=== PATIENT | male | born 1955 | race Caucasian/White ===

== ENCOUNTER 2017-05-03 22:30 | Emergency (ER) | payer MEDICAID ==
[~2017-05-03] VITALS: Ht 177.8 cm; Wt 102.0 kg
[~2017-05-03 22:30] MED LIST: ALPR0.5T96 PO; ALPR1TAB2 PO; AMLO2.5T45 PO; BENA20TA3 PO
[2017-05-03] MEDS ORDERED: SODIUM CHLORIDE 0.9% 1,000 ML IV ONE (23:40)
[2017-05-03] MEDS ORDERED: MORPHINE SULFATE 4 MG/ML CPJ (NOT FOR IM USE) IV ONE (23:45)
[2017-05-03] MEDS ORDERED: ONDANSETRON HCL 4MG/2ML VIAL IV ONE (23:45)
[2017-05-04 00:20] LABS: BASOPHILS % 0.5 % (0.0-2.0); HEMATOCRIT. 38.5 % (42.0-52.0); HEMOGLOBIN. 13.3 g/dL (14.0-18.0); LYMPHOCYTES % 17.2 % (20.0-50.0); MEAN CORPUSCULAR HEMOGLOBIN 33.3 pg (28.0-32.0); MEAN CORPUSCULAR VOLUME 96.4 fL (80.0-94.0); MEAN PLATELET VOLUME 9.3 fl (7.4-10.4); NEUTROPHILS % 73.3 % (40.0-76.0); PLATELET 165 x1000/uL (130-400); RED CELL DISTRIBUTION WIDTH 12.9 % (11.6-14.6)
[2017-05-04 00:32] LABS: CHLORIDE 108 mEq/L (98-107)
[2017-05-04 00:42] LABS: CARBON DIOXIDE 23 mEq/L (21-32)
[2017-05-04 04:13] VITALS: BP 138/88
[2017-05-04] MEDS ORDERED: IOHEXOL-300 100 ML BOTTLE ONE (14:04)
[2017-05-04] MEDS ORDERED: SODIUM CHLORIDE 0.9% 10ML VIAL ONE (14:04)
== END 2017-05-04 04:24 | disposition home or self-care (01) ==
LOC: ER 22:40
DX: S20.219A Contusion of unspecified front wall of thorax, initial encounter (principal); S09.8XXA Other specified injuries of head, initial encounter; I10 Essential (primary) hypertension; F41.9 Anxiety disorder, unspecified; E78.00 Pure hypercholesterolemia, unspecified; H05.331 Deformity of right orbit due to trauma or surgery; W13.2XXA Fall from, out of or through roof, initial encounter; Y93.89 Activity, other specified; Y92.89 Other specified places as the place of occurrence of the external cause; Y99.8 Other external cause status
CPT/HCPCS: 36415; 70450; 71010; 71260; 72125; 74177; 80053; 85025; 86850; 86900; 86901; 96361; 96374; 96375; 99285; A4216; J2270; J2405; J7030; Q9967; Z7610

== ENCOUNTER 2018-02-13 21:37 | Emergency (ER) | payer MEDICAID ==
[~2018-02-13] VITALS: Ht 180.3 cm; Wt 102.0 kg
[~2018-02-13 21:37] MED LIST changes: +ALPR0.5T PO; -ALPR0.5T96 PO
[2018-02-14] MEDS ORDERED: IBUPROFEN 600MG TABLET PO STA (02:07)
[2018-02-14 02:25] LABS: BASOPHILS % 0.8 % (0.0-2.0); EOSINOPHILS % 2.2 % (0.0-5.0); HEMATOCRIT. 41.3 % (42.0-52.0); HEMOGLOBIN. 14.1 g/dL (14.0-18.0); MEAN CORPUSCULAR HEMOGLOBIN 33.5 pg (28.0-32.0); MEAN CORPUSCULAR VOLUME 97.6 fL (80.0-94.0); MONOCYTES % 8.9 % (2.0-8.0); NEUTROPHILS % 63.1 % (40.0-76.0); PLATELET 212 x1000/uL (130-400); RED BLOOD CELL COUNT 4.23 mill/uL (4.7-6.1); RED CELL DISTRIBUTION WIDTH 12.3 % (11.6-14.6)
[2018-02-14 02:30] LABS: CHLORIDE 107 mEq/L (98-107)
[2018-02-14] MEDS ORDERED: VANCOMYCIN 1 G PREMIX 200 ML IV ONE (04:00)
[2018-02-14 06:19] VITALS: BP 104/80
== END 2018-02-14 06:21 | disposition home or self-care (01) ==
LOC: ER 22:36
DX: L03.031 Cellulitis of right toe (principal); I10 Essential (primary) hypertension; F41.9 Anxiety disorder, unspecified
CPT/HCPCS: 36415; 73630; 80053; 85025; 96365; 96366; 99285; J3370; Z7610

== ENCOUNTER 2019-01-01 23:19 | Emergency (ER) | payer MEDICAID ==
[~2019-01-01] VITALS: Ht 180.3 cm; Wt 100.0 kg
[~2019-01-01 23:19] MED LIST changes: +BENA20TA10 PO; -BENA20TA3 PO
[2019-01-02 01:14] LABS: CHLORIDE 108 mEq/L (98-107)
[2019-01-02 01:15] LABS: BASOPHILS % 0.5 % (0.0-2.0); EOSINOPHILS % 1.9 % (0.0-5.0); HEMATOCRIT. 41.8 % (42.0-52.0); HEMOGLOBIN. 14.4 g/dL (14.0-18.0); LYMPHOCYTES % 24.6 % (20.0-50.0); MEAN CORPUSCULAR HEMOGLOBIN 33.6 pg (28.0-32.0); MEAN CORPUSCULAR VOLUME 97.5 fL (80.0-94.0); MEAN PLATELET VOLUME 10.3 fl (7.4-10.4); MONOCYTES % 8.5 % (2.0-8.0); NEUTROPHILS % 64.5 % (40.0-76.0); PLATELET 168 x1000/uL (130-400); RED BLOOD CELL COUNT 4.28 mill/uL (4.7-6.1); RED CELL DISTRIBUTION WIDTH 12.6 % (11.6-14.6)
[2019-01-02] MEDS ORDERED: NITROGLYCERIN 0.4MG TABLET SL SL PRN (01:15)
[2019-01-02] MEDS ORDERED: ASPIRIN 81MG TABLET PO ONE (01:15)
[2019-01-02 05:27] VITALS: BP 129/78
== END 2019-01-02 05:28 | disposition home or self-care (01) ==
LOC: ER 23:19
DX: R07.89 Other chest pain (principal); F41.9 Anxiety disorder, unspecified; I10 Essential (primary) hypertension; Z79.899 Other long term (current) drug therapy
CPT/HCPCS: 36415; 71045; 80053; 83880; 84484; 85025; 93005; 99284; Z7610

== ENCOUNTER 2019-04-23 12:45 | Inpatient (IN) | payer MEDICAID, OTHER ==
[~2019-04-23] VITALS: Ht 177.8 cm; Wt 103.1 kg
[2019-04-23 14:31] LABS: CHLORIDE 106 mEq/L (98-107)
[2019-04-23 14:36] LABS: BASOPHILS % 0.5 % (0.0-2.0); EOSINOPHILS % 1.9 % (0.0-5.0); HEMATOCRIT. 46.8 % (42.0-52.0); MEAN CORPUSCULAR HEMOGLOBIN 33.6 pg (28.0-32.0); MEAN CORPUSCULAR VOLUME 98.3 fL (80.0-94.0); MEAN PLATELET VOLUME 9.4 fl (7.4-10.4); MONOCYTES % 8.5 % (2.0-8.0); NEUTROPHILS % 59.1 % (40.0-76.0); PLATELET 172 x1000/uL (130-400); RED BLOOD CELL COUNT 4.76 mill/uL (4.7-6.1); RED CELL DISTRIBUTION WIDTH 13.2 % (11.6-14.6)
[2019-04-23 14:39] LABS: PARTIAL THROMBOPLASTIN TIME 28.5 sec (23.4-31.0); PROTHROMBIN TIME 10.4 sec (9.6-11.0)
[2019-04-23 14:40] LABS: CLARITY URINE CLEAR (CLEAR); COLOR URINE YELLOW (YELLOW); KETONES URINE NEGATIVE (NEGATIVE); LEUKOCYTE ESTERASE URINE NEGATIVE (NEGATIVE); NITRITE URINE NEGATIVE (NEGATIVE); OCCULT BLOOD URINE NEGATIVE (NEGATIVE); PH URINE 5.5 (4.5-8.0); PROTEIN URINE NEGATIVE (NEGATIVE); SPECIFIC GRAVITY URINE 1.014 (1.005-1.030); UROBILINOGEN URINE 0.2 E.U./dL (0.2-1.0)
[2019-04-23 15:59] VITALS: BP_SYST 119; BP_SYST 128; BP_DIAS 76; BP_DIAS 82
[2019-04-23] MEDS ORDERED: MORPHINE SULFATE 2 MG/ML CPJ (NOT FOR IM USE) IV PRN (17:00)
[2019-04-23] MEDS ORDERED: HYDROCODONE/ACETAMINOPHEN 5/325MG TABLET PO PRN (17:00)
[2019-04-23] MEDS ORDERED: CLONIDINE 0.1MG TABLET PO PRN (17:00)
[2019-04-23] MEDS ORDERED: DIPHENHYDRAMINE 50MG/ML VIAL IV PRN (17:00)
[2019-04-23] MEDS ORDERED: DOCUSATE SODIUM 100MG CAPSULE PO PRN (17:00)
[2019-04-23] MEDS ORDERED: ACETAMINOPHEN 325MG TABLET PO PRN (17:00)
[2019-04-23] MEDS ORDERED: NA PHOS,M-B/NA PHOS,DI-BA ENEMA 118ML PR PRN (17:00)
[2019-04-23] MEDS ORDERED: IPRATROPIUM/ALBUTEROL 0.5-3(2.5)MG/3ML NEB INH PRN (17:00)
[2019-04-23] MEDS ORDERED: ONDANSETRON HCL 4MG/2ML INJ IV PRN (17:00)
[2019-04-23] MEDS ORDERED: ENOXAPARIN 40MG/0.4ML SYR SUBCUT SCH (17:00)
[2019-04-23] MEDS ORDERED: LORAZEPAM 2MG/ML CPJ IV PRN (17:00)
[2019-04-23] MEDS ORDERED: MAGNESIUM/ALUMINUM HYDROXIDE/SIMETHICONE 30ML UDC PO PRN (17:00)
[2019-04-23] MEDS ORDERED: GUAIFENESIN 200MG/10ML SUGAR FREE UDC PO PRN (17:00)
[2019-04-23] MEDS: ENOXAPARIN 30MG/0.3ML SYR SUBCUT SCH (17:09)
[2019-04-23] MEDS: DILTIAZEM HCL 30MG TABLET PO SCH (17:09)
[2019-04-23 18:00] VITALS: BP 124/63
[2019-04-23] MEDS ORDERED: DILTIAZEM HCL 30MG TABLET PO SCH (18:00)
[2019-04-23 20:00] VITALS: BP 131/74
[2019-04-23 20:44] LABS: CHLORIDE 106 mEq/L (98-107)
[2019-04-23 22:00] VITALS: BP 134/71
[2019-04-23] MEDS ORDERED: ZOLPIDEM TARTRATE 5MG TABLET PO PRN (22:15)
[2019-04-24] VITALS (13 sets, daily range): BP systolic 111–134; BP diastolic 55–93
[2019-04-24] MEDS: DILTIAZEM HCL 30MG TABLET PO SCH ×2 (00:45→06:01)
[2019-04-24] MEDS: ENOXAPARIN 30MG/0.3ML SYR SUBCUT SCH ×2 (06:01→17:13)
[2019-04-24 07:43] LABS: BASOPHILS % 0.5 % (0.0-2.0); EOSINOPHILS % 2.1 % (0.0-5.0); HEMOGLOBIN. 14.7 g/dL (14.0-18.0); LYMPHOCYTES % 41.4 % (20.0-50.0); MEAN CORPUSCULAR VOLUME 98.4 fL (80.0-94.0); MEAN PLATELET VOLUME 10.1 fl (7.4-10.4); MONOCYTES % 8.3 % (2.0-8.0); NEUTROPHILS % 47.7 % (40.0-76.0); PLATELET 160 x1000/uL (130-400); RED BLOOD CELL COUNT 4.47 mill/uL (4.7-6.1)
[2019-04-24 07:55] LABS: CHLORIDE 106 mEq/L (98-107)
[2019-04-24 08:04] LABS: LDL CHOLESTEROL 92 mg/dL (5-100)
[2019-04-24 08:05] LABS: HDL CHOLESTEROL 39 mg/dL (40-59)
[2019-04-24] MEDS: ASPIRIN 81MG EC TABLET PO SCH (08:42)
[2019-04-24] MEDS ORDERED: ASPIRIN 81MG EC TABLET PO SCH (09:00)
[2019-04-24] MEDS: VERAPAMIL HCL 80 MG TABLET PO SCH ×3 (12:12→22:46)
[2019-04-25] VITALS (12 sets, daily range): BP systolic 111–138; BP diastolic 58–73
[2019-04-25] MEDS: VERAPAMIL HCL 80 MG TABLET PO SCH (06:13)
[2019-04-25] MEDS: ENOXAPARIN 30MG/0.3ML SYR SUBCUT SCH ×2 (06:14→18:32)
[2019-04-25] MEDS: ASPIRIN 81MG EC TABLET PO SCH (09:28)
[2019-04-25] MEDS: VERAPAMIL HCL 120MG TABLET PO SCH ×2 (14:00→21:29)
[2019-04-26] VITALS (13 sets, daily range): BP systolic 109–148; BP diastolic 54–83
[2019-04-26] MEDS: VERAPAMIL HCL 120MG TABLET PO SCH ×3 (06:12→22:00)
[2019-04-26] MEDS: ENOXAPARIN 30MG/0.3ML SYR SUBCUT SCH ×2 (06:12→18:48)
[2019-04-26] MEDS: ASPIRIN 81MG EC TABLET PO SCH (09:01)
[2019-04-26] MEDS: ALPRAZOLAM 0.25 MG TABLET PO PRN (15:46)
[2019-04-27] VITALS (12 sets, daily range): BP systolic 108–139; BP diastolic 56–87
[2019-04-27] MEDS: VERAPAMIL HCL 120MG TABLET PO SCH (06:06)
[2019-04-27] MEDS: ENOXAPARIN 30MG/0.3ML SYR SUBCUT SCH ×2 (06:07→17:26)
[2019-04-27 07:18] LABS: BASOPHILS % 0.4 % (0.0-2.0); EOSINOPHILS % 2.6 % (0.0-5.0); HEMATOCRIT. 43.1 % (42.0-52.0); HEMOGLOBIN. 14.5 g/dL (14.0-18.0); LYMPHOCYTES % 37.9 % (20.0-50.0); MEAN CORPUSCULAR HEMOGLOBIN 33.1 pg (28.0-32.0); MEAN CORPUSCULAR VOLUME 98.5 fL (80.0-94.0); MEAN PLATELET VOLUME 10.4 fl (7.4-10.4); MONOCYTES % 8.2 % (2.0-8.0); NEUTROPHILS % 50.9 % (40.0-76.0); PLATELET 154 x1000/uL (130-400); RED BLOOD CELL COUNT 4.38 mill/uL (4.7-6.1); RED CELL DISTRIBUTION WIDTH 12.9 % (11.6-14.6)
[2019-04-27 07:38] LABS: CHLORIDE 107 mEq/L (98-107)
[2019-04-27] MEDS: ASPIRIN 81MG EC TABLET PO SCH (08:52)
[2019-04-27] MEDS: SOTALOL HCL 80MG TABLET PO SCH ×2 (13:24→20:59)
[2019-04-28] VITALS (18 sets, daily range): BP systolic 107–141; BP diastolic 68–93
[2019-04-28] MEDS: ENOXAPARIN 30MG/0.3ML SYR SUBCUT SCH ×2 (05:52→17:32)
[2019-04-28 07:42] LABS: BASOPHILS % 0.3 % (0.0-2.0); EOSINOPHILS % 2.9 % (0.0-5.0); HEMATOCRIT. 44.6 % (42.0-52.0); HEMOGLOBIN. 15.2 g/dL (14.0-18.0); LYMPHOCYTES % 31.5 % (20.0-50.0); MEAN CORPUSCULAR HEMOGLOBIN 33.7 pg (28.0-32.0); MEAN CORPUSCULAR VOLUME 98.6 fL (80.0-94.0); MEAN PLATELET VOLUME 10.5 fl (7.4-10.4); MONOCYTES % 8.1 % (2.0-8.0); NEUTROPHILS % 57.2 % (40.0-76.0); PLATELET 163 x1000/uL (130-400); RED BLOOD CELL COUNT 4.53 mill/uL (4.7-6.1); RED CELL DISTRIBUTION WIDTH 12.7 % (11.6-14.6)
[2019-04-28 07:53] LABS: CHLORIDE 106 mEq/L (98-107)
[2019-04-28] MEDS: ASPIRIN 81MG EC TABLET PO SCH (08:11)
[2019-04-28] MEDS: ALPRAZOLAM 0.25 MG TABLET PO PRN (08:11)
[2019-04-28] MEDS: SOTALOL HCL 80MG TABLET PO SCH (08:13)
[2019-04-29] VITALS (10 sets, daily range): BP systolic 99–154; BP diastolic 50–98
[2019-04-29] MEDS: ENOXAPARIN 30MG/0.3ML SYR SUBCUT SCH (05:27)
[2019-04-29] MEDS: ALPRAZOLAM 0.25 MG TABLET PO PRN (08:28)
[2019-04-29] MEDS: ASPIRIN 81MG EC TABLET PO SCH (08:28)
== END 2019-04-29 13:00 | disposition home or self-care (01) | DRG 201 ==
LOC: ER 12:45 → 3WST 14:55 → ENRESERV 15:21
PROVIDERS: ADMIT Internal Medicine; ATTEND Internal Medicine
DX: I49.8 Other specified cardiac arrhythmias (principal); H92.22 Otorrhagia, left ear; I42.9 Cardiomyopathy, unspecified; I49.3 Ventricular premature depolarization; E78.1 Pure hyperglyceridemia; I10 Essential (primary) hypertension; K21.9 Gastro-esophageal reflux disease without esophagitis; F41.0 Panic disorder [episodic paroxysmal anxiety]; I25.10 Atherosclerotic heart disease of native coronary artery without angina pectoris; Z79.82 Long term (current) use of aspirin; Z87.891 Personal history of nicotine dependence
CPT/HCPCS: 36415; 71045; 80048; 80061; 83735; 83880; 84439; 84443; 84484; 93005; 93306; 93970; 99285; J1650; J2060